=== PATIENT | female | born 1975 | race Caucasian/White ===

== ENCOUNTER 2018-03-30 08:15 | Outpatient (CLI) | payer OTHER ==
[2018-03-30 09:13] LABS: eGFR (Non-African) > 60
== END 2018-03-30 08:16 ==
LOC: LAB 08:15
PROVIDERS: ATTEND Nurse Practitioner Family
DX: E78.5 Hyperlipidemia, unspecified (principal); R63.5 Abnormal weight gain
CPT/HCPCS: 36415; 80053; 80061; 84439; 84443; 84481

== ENCOUNTER 2018-04-12 15:29 | Outpatient (CLI) | payer OTHER ==
--- NOTE | 2018-04-13 04:09 | Diagnostic Imaging Report ---
MYRNA BERMAN [facility] [address] [id number] Report Submission Date: Apr 12, 2018 6:54:58 PM GRAVE DIGGER Patient Study Name: TANNA VINCENT Date: Apr 12, 2018 3:39:23 PM GRAVE DIGGER Modality Type: DX Gender: F Description: SHOULDER 2 VIEWS OR MORE : 71 Institution: [facility] Physician: MYRNA BERMAN Examination: Plain film right shoulder History: Right shoulder pain (Hx) Comparison exams: None provided Findings: 3 views of the right shoulder demonstrate normal cortical margins. No evidence for fracture or dislocation. No soft tissue abnormality Impression: No acute osseous process. Electronically signed on Apr 12, 2018 6:54:58 PM GRAVE DIGGER by: Jones ALVARADO
== END 2018-04-12 15:45 ==
LOC: RAD 15:29
PROVIDERS: ATTEND Nurse Practitioner Family
DX: M25.511 Pain in right shoulder (principal)
CPT/HCPCS: 73030

== ENCOUNTER 2018-11-23 07:18 | Emergency (ER) | payer OTHER | END 2018-11-23 07:54 | disposition home or self-care (01) | LOC: ED 07:18 | DX: M79.661 Pain in right lower leg (principal) | CPT/HCPCS: 99283 ==

== ENCOUNTER 2018-11-29 13:57 | Outpatient (CLI) | payer OTHER ==
[2018-12-05 12:09] LABS: eGFR (Non-African) > 60
[2018-12-05 12:10] LABS: HDL 43 mg/dL (>40)
== END 2018-11-29 14:00 | disposition home or self-care (01) ==
LOC: LAB 13:57
PROVIDERS: ATTEND Nurse Practitioner Family
DX: E78.5 Hyperlipidemia, unspecified (principal); I10 Essential (primary) hypertension
CPT/HCPCS: 36415; 80053; 80061; 84439; 84443; 84481

== ENCOUNTER 2018-12-17 20:35 | Emergency (ER) | payer OTHER ==
--- NOTE | 2018-12-17 20:59 | ED Physician Documentation ---
Upper Respiratory Symptoms - HISTORIAN Historian: patient - HPI Stated Complaint: dry cough x 30 days Chief Complaint: Cough/ Upper Respiratory Additional Information: Patient presents to ED with a 30 day history of dry cough (worse at night, with exercise and cold air). She has been on several medrol dose packs and states she does fine while she is on them but he cough always comes back. She has albuterol inhaler but gets little relief with that. She reports some chest heaviness and then notices some rapid heart rate. Onset: days ago (30) Duration: intermittent episodes Context: denies: recent foreign travel Severity: moderate Associated Symptoms: denies: fever Worsened by Deep Breath: Yes Further Comments: no - ROS CONST/EYES: denies: weakness CVS/RESP: other (chest heaviness) LYMPH: denies: leg swelling GI/: denies: vomiting, nausea NEURO/PSYCH: denies: dizziness MS/SKIN: denies: muscle aches - PAST HX Lung Disease: asthma PE Risk Factors: none Surgeries/Procedures: none Allergies/Adverse Reactions: Allergies Allergy/AdvReac Type Severity Reaction Status Date / Time No Known Drug Allergies Allergy Verified 12/17/18 20:53 Home Medications: Ambulatory Orders Medication Instructions Recorded Albuterol Sulfate [Albuterol 2 puff PO PRN 12/17/18 Sulfate Hfa] Methylprednisolone [Medrol] 4 mg PO DIRECTED #1 tab.ds.pk 12/17/18 Montelukast Sodium [Singulair] 10 mg PO HS #30 tablet 12/17/18 - SOCIAL HX Smoking History: non-smoker Alcohol Use: none Drug Use: none - FAMILY HX Family History: none - VITAL SIGNS Vital Signs: Vital Signs Temp Pulse Resp BP Pulse Ox 97.8 F 107 H 18 141/65 100 12/17/18 20:45 12/17/18 20:45 12/17/18 20:45 12/17/18 20:45 12/17/18 20:45 - REVIEWED ASSESSMENTS Nursing Assessment Reviewed: Yes Vitals Reviewed: Yes ED Results Lab/Radiology - Orders Orders: ED Orders Category Date Time Status Ipratropium/Albuterol Sulfate [Duoneb] Med 12/17/18 20:59 Once 3 ml NEB NOW ONE methylPREDNISolone SOD SUCC [SOLU-Medrol] Med 12/17/18 20:59 Once 125 mg IM NOW ONE Upper Respiratory Symptoms - EXAM General Appearance: no acute distress, alert, anxious EENT: PERRL Respiratory: no resp. distress, breath sounds nml, other (coughing with deep inspiration) Abdomen: non-tender, nml bowel sounds CVS: reg rate & rhythm, heart sounds normal Skin: color nml, no rash, warm,dry Extremities: non-tender, no evidence of injury Neuro/Psych: oriented x3, mood/affect nml Discharge Clincal Impression: Asthma flare Qualifiers: Asthma severity: mild Asthma persistence: intermittent Qualified Code(s): J45.21 - Mild intermittent asthma with (acute) exacerbation Prescriptions: Methylprednisolone [Medrol] 4 mg PO DIRECTED #1 tab.ds.pk Montelukast Sodium [Singulair] 10 mg PO HS #30 tablet Referrals: Nanette Han NP [Primary Care Provider] - 2 Days Additional Instructions: 1. Start Singulair tomorrow evening. This medication will help reduce your asthma flares 2. Start Medrol dose pack tomorrow 3. Add a daily antihistamine such as Claritin, Zyrtec, Xyzal or Alie if symptoms begin while taking Singulair. Take both. 4. Use Albuterol inhaler as previously prescribed 5. Follow up with PCP within 1 week. Discuss referral to [facility] Repairman 6. Return to ER for new or worsening symptoms Condition: Stable Disposition: 01 HOME, SELF-CARE Decision to Admit: NO Date of Decison to Admit: 12/17/18 Decision Time: 21:08
[2018-12-17] MEDS: methylPREDNISolone SOD SUCC 125 MG/2 ML VIAL IM ONE (21:11)
[2018-12-17] MEDS: IPRATROPIUM/ALBUTEROL SULFATE 3 ML AMPUL.NEB NEB ONE (21:17)
[2018-12-17] MEDS: MONTELUKAST SODIUM 10 MG TABLET PO ONE (21:20)
[2018-12-17 21:33] VITALS: BP 145/87
== END 2018-12-17 21:21 | disposition home or self-care (01) ==
LOC: ED 20:35
DX: J45.21 Mild intermittent asthma with (acute) exacerbation (principal)
CPT/HCPCS: 94640; 96372; 99284; J2930